=== PATIENT | female | born 1990 | race Caucasian/White ===

== ENCOUNTER → 2021-01-23 18:03 | Observation (INO) ==
[2021-01-23 17:15] LABS: Bilirubin,Urine Negative (Negative); Blood,Urine Negative (Negative); Clarity,Urine Clear (Clear); Color,Urine Colorless (Yellow); Glucose,Urine (UA) Normal (Normal); Ketones,Urine Negative (Negative); Leukocyte Esterase,Urine Negative (Negative); Nitrite,Urine Negative (Negative); Protein,Urine Negative (Neg-Trace); Specific Gravity,Urine 1.008 (1.010-1.025); Urobilinogen,Urine Normal (Normal)
== END | disposition home or self-care (01) ==
LOC: 1NENULAB
PROVIDERS: ADMIT Student in an Organized Health Care Education/Training Program; ATTEND Student in an Organized Health Care Education/Training Program

== ENCOUNTER → 2021-04-26 15:33 | Observation (INO) ==
[~2021-04-26 15:33] MED LIST: Ringers Solution, Lactated 1,000 ML IVC ONE; Ringers Solution, Lactated 1,000 ML ONE
== END | disposition home or self-care (01) ==
LOC: 1NENULAB
PROVIDERS: ADMIT Student in an Organized Health Care Education/Training Program; ATTEND Student in an Organized Health Care Education/Training Program

== ENCOUNTER 2021-04-30 22:06 | Observation (INO) ==
[2021-04-30 22:59] LABS: Bilirubin,Urine Negative (Negative); Blood,Urine Negative (Negative); Clarity,Urine Clear (Clear); Color,Urine Colorless (Yellow); Glucose,Urine (UA) Normal (Normal); Ketones,Urine Negative (Negative); Leukocyte Esterase,Urine Negative (Negative); Nitrite,Urine Negative (Negative); PH,Urine 6.5 pH Units (5.0-8.0); Protein,Urine Negative (Neg-Trace); Specific Gravity,Urine 1.007 (1.010-1.025); Urobilinogen,Urine Normal (Normal)
== END 2021-04-30 23:37 | disposition home or self-care (01) ==
LOC: 1NENULAB
PROVIDERS: ADMIT Student in an Organized Health Care Education/Training Program; ATTEND Student in an Organized Health Care Education/Training Program

== ENCOUNTER 2021-05-18 05:30 | Inpatient (IN) ==
[2021-05-18] MEDS ORDERED: Famotidine 20 MG/2 ML VIAL IVP ONE (05:59)
[2021-05-18] MEDS ORDERED: CeFAZolin 2,000MG/50ML DUPLEX 2,000 MG/50 ML BAG IVPB ONE (05:59)
[2021-05-18] MEDS ORDERED: Metoclopramide 10 MG/2 ML VIAL IVP ONE (05:59)
[2021-05-18] MEDS ORDERED: Ringers Solution, Lactated 1,000 ML ONE (06:20)
[2021-05-18] MEDS ORDERED: Ringers Solution, Lactated 1,000 ML IVC ONE (06:21)
[2021-05-18 06:57] LABS: Basophils % 0.5 %; Eosinophils # 0.1 K/mcL (0.0-0.6); Eosinophils % 1.1 %; Hemoglobin 10.2 g/dL (11.5-15.4); Immature Granulocytes % 1.1 % (0-4); Lymphocytes # 1.5 K/mcL (0.6-4.6); Lymphocytes % 18.5 %; Mean Corpuscular Hemoglobin 28.9 pg (28.0-33.3); Monocytes # 0.7 K/mcL (0.0-1.3); Monocytes % 7.8 %; Neutrophils # 5.9 K/mcL (1.6-8.9); Platelet Count 193 K/mcL (140-400); Red Blood Count 3.53 M/mcL (3.82-4.97); Red Cell Distribution Width 13.8 % (11.5-14.5); White Blood Count 8.3 K/mcL (4.3-11.1)
[2021-05-18] MEDS ORDERED: Oxytocin 20 units/ LR 1000 mL 20 UNIT/1,000 ML BAG IVC ONE ×2 (07:23→10:23)
[2021-05-18] MEDS ORDERED: *HR* Propofol 200 MG/20 ML VIAL IVP ONE (07:38)
[2021-05-18] MEDS ORDERED: *HR* Succinylcholine 200 MG/10 ML VIAL IVP ONE (07:38)
[2021-05-18] MEDS ORDERED: Lidocaine -MPF 2% 5 ML VIAL ONE (07:38)
[2021-05-18] MEDS ORDERED: Ketamine *HR* 500 MG/10 ML MDV ONE (07:45)
[2021-05-18] MEDS ORDERED: Ondansetron 4 MG/2 ML VIAL ONE (07:47)
[2021-05-18 08:13] LABS: Amphetamine Screen,Urine Negative ng/mL (Cutoff=1000); Barbiturate Screen,Urine Negative ng/mL (Cutoff=200); Benzodiazepines Screen,Urine Negative ng/mL (Cutoff=200); Cannabinoid Screen,Urine Negative ng/mL (Cutoff = 50); Cocaine Screen,Urine Negative ng/mL (Cutoff= 300); Opiate Screen,Urine Negative ng/mL (Cutoff=300); Phencyclidine Screen,Urine Negative ng/mL (Cutoff=25)
[2021-05-18] MEDS ORDERED: *HR* OxyCODONE Immed Rel 5 MG TABLET PO PRN (08:14)
[2021-05-18] MEDS ORDERED: Promethazine 6.25 MG in Water for inj. (sterile) 20 ML IVPB PRN (08:14)
[2021-05-18] MEDS ORDERED: *HR* Meperidine 25 MG/ML SYRINGE IVP PRN (08:14)
[2021-05-18] MEDS ORDERED: *HR* HYDROmorphone PF 0.5 MG/0.5 ML SYRINGE IVP PRN (08:14)
[2021-05-18] MEDS ORDERED: Ondansetron 4 MG/2 ML VIAL IVP PRN ×2 (08:14→12:04)
[2021-05-18] MEDS ORDERED: *HR* Rocuronium Bromide 50 MG/5 ML VIAL ONE (08:52)
[2021-05-18] MEDS ORDERED: Acetaminophen IV 1,000 MG/100 ML BAG IVPB ONE (09:00)
[2021-05-18] MEDS ORDERED: Ketorolac 30 MG/ML VIAL ONE (09:28)
[2021-05-18] MEDS ORDERED: Rho Immune Globulin 1,500 UNIT SYRINGE IM ONE (12:04)
[2021-05-18] MEDS ORDERED: Metoclopramide 10 MG/2 ML VIAL IVP PRN (12:04)
[2021-05-18] MEDS ORDERED: Oxytocin 20 units/ LR 1000 mL 20 UNIT/1,000 ML BAG IVC SCH (12:04)
[2021-05-18] MEDS ORDERED: Simethicone 80 MG TAB.CHEW PO PRN (12:04)
[2021-05-18] MEDS ORDERED: Ringers Solution, Lactated 1,000 ML IVC SCH (12:04)
[2021-05-18] MEDS ORDERED: SUMAtriptan succinate 50 MG TABLET PO PRN (12:04)
[2021-05-18] MEDS: Acetaminophen 325 MG TABLET PO SCH ×3 (16:14→23:36)
[2021-05-18] MEDS: Ibuprofen 600 MG TABLET PO SCH ×3 (16:14→23:36)
[2021-05-18] MEDS: *HR* OxyCODONE Immed Rel 5 MG TABLET PO PRN (20:28)
[2021-05-19] MEDS: *HR* OxyCODONE Immed Rel 5 MG TABLET PO PRN (04:54)
[2021-05-19 05:35] VITALS: O2SAT 99
[2021-05-19] MEDS: Acetaminophen 325 MG TABLET PO SCH (06:27)
[2021-05-19] MEDS: Ibuprofen 600 MG TABLET PO SCH (06:27)
[2021-05-19 07:05] LABS: Basophils # 0.1 K/mcL (0.0-0.2); Basophils % 0.4 %; Eosinophils # 0.1 K/mcL (0.0-0.6); Eosinophils % 0.6 %; Hematocrit 27.3 % (35.3-44.9); Immature Granulocytes % 0.7 % (0-4); Lymphocytes # 1.8 K/mcL (0.6-4.6); Lymphocytes % 13.2 %; Mean Corpuscular Hemoglobin 28.4 pg (28.0-33.3); Mean Corpuscular Volume 86.1 fL (83.0-100.0); Mean Platelet Volume 10.7 fL (9.4-12.4); Monocytes % 7.3 %; Neutrophils # 10.5 K/mcL (1.6-8.9); Platelet Count 183 K/mcL (140-400); Red Blood Count 3.17 M/mcL (3.82-4.97); Red Cell Distribution Width 13.9 % (11.5-14.5); Segmented Neutrophils % 77.8 %; White Blood Count 13.5 K/mcL (4.3-11.1)
[2021-05-19 08:28] VITALS: BP 111/74; PULSE 87; TEMP 97.7
[2021-05-19] MEDS ORDERED: Prenatal Vit/FA 1 EACH TABLET PO SCH (09:00)
[2021-05-19] MEDS ORDERED: NON-FORMULARY MEDICATION 1 EACH EACH (Prenatal Formula Tablet 1 TAB) PO SCH (09:00)
[2021-05-19] MEDS ORDERED: Rho Immune Globulin 1,500 UNIT SYRINGE IM ONE (10:56)
== END 2021-05-19 13:38 | disposition home or self-care (01) | DRG 788 ==
LOC: 1NENULAB 05:47 → 1NENUOBS 12:01
PROVIDERS: ADMIT Student in an Organized Health Care Education/Training Program; ATTEND Student in an Organized Health Care Education/Training Program